=== PATIENT | female | born 1960 | race Caucasian/White ===

== ENCOUNTER 2023-06-04 15:19 | Outpatient (AMB) | payer OTHER, SELFPAY ==
--- NOTE | 2023-06-04 15:20 | HO.NEPHOV_ITS ---
HPI HPI Comments History of Present Illness Details 62-year-old woman with a history of obes ity hypertension recently diagnosed diabetes mellitus with CKD 3. She underwent ureteral surgery at age 4. Subsequently she has not had any followups. Recently she was told to have stage III CKD and hands this referral [facility] Medical History (Updated 06/04/23 @ 15:39 by Twan Betts MD) HTN (hypertension) Diabetes Social History (Updated 06/04/23 @ 15:26 by Angeline De Paz MA) Alcohol intake: never Tobacco use type: Cigarette Cigarette Packs Per Day: 1 Vital Signs 06/04/23 15:21 Height 5 ft 5.5 in Weight 259 lb 8 oz BMI 42.5 BP 152/100 H Blood Pressure Location Lt brachial Position Sitting Pulse 58 Pulse Source Pulse Oximeter Pulse Oximetry (%) 96 Oxygen Delivery Method Room Air Physical Exam Vital Signs: Last Vital Signs Pulse 58 06/04/23 15:21 BP 152/100 H 06/04/23 15:21 Pulse Ox 96 06/04/23 15:21 Oxygen Delivery Method Room Air 06/04/23 15:21 BMI result Body Mass Index 42.5 Const General: comfortable Nutritional Appearance: well nourished Orientation/consciousness: patient oriented x3 HEENT Head: No normal to inspection Mouth: moist mucous membranes Neck Neck: Yes supple and Yes no JVD Resp Auscultation: clear to auscultation bilaterally, no rales and rub present Cardio Jugular venous distension: no JVD Palpation: no palpable S3 and no palpable S4 Heart sounds: no rubs GI Palpation (GI): Soft to palpation and nontender Percussion: No Fluid wave present General: Yes no CVA tenderness Back/Spine/Pelvis Back: no CVA tenderness Skin General skin exam: no rashes or lesions noted Neuro General: patient oriented x3 Extrem General: Yes no pedal edema and No clubbing Assessment & Plan Assessment & Plan (1) CKD (chronic kidney disease) stage 3, GFR 30-59 ml/min: Code(s): N18.30 - Chronic kidney disease, stage 3 unspecified Plan: CKD most likely due to hypertension diabetic kidney disease. Given the history of urethral surgery in the past obstructive uropathy should be ruled out. No reasonably she has any active glomerular interstitial disease at this time. Workup as outlined below. We will check renal ultrasonogram to rule out obstruction and to assess echogenicity. The meantime encouraged her to stand low-sodium diet. She will benefit from weight loss. Should continue to avoid NSAIDs and other nephrotoxic agents. Goal is to maintain the hemoglobin A1c less than 7%. Blood pressure goal of 130/80. Apparently blood pressure being well controlled except today. Since this is her 1st visit on not need any changes we will re-evaluate the blood pressure during the next visit and see if she requires any titration with regards to the antihypertensives. Orders: Orders Electrolytes Today N18.30 - Chronic kidney disease, stage 3 unspecified Blood Urea Nitrogen Today N18.30 - Chronic kidney disease, stage 3 unspecified Creatinine Today N18.30 - Chronic kidney disease, stage 3 unspecified Total Protein Urine Random Today N18.30 - Chronic kidney disease, stage 3 unspecified UA and rflx microscopic Today N18.30 - Chronic kidney disease, stage 3 unspecified Creatinine Urine Today N18.30 - Chronic kidney disease, stage 3 unspecified Calcium Today N18.30 - Chronic kidney disease, stage 3 unspecified US renal BI Today N18.30 - Chronic kidney disease, stage 3 unspecified Coding Level of Care Code New Pt Level 4 (54000) Diagnoses CKD (chronic kidney disease) stage 3, GFR 30-59 ml/min N18.30 Results Reviewed Results Reviewed: Lab data not available Nephrology Results: No Data to Display
[2023-06-04 15:21] VITALS: BP 152/100; PULSE 58; O2SAT 96; BMI 42.5
== END 2023-06-04 15:44 | disposition home or self-care (01) ==
PROVIDERS: PCP Internal Medicine; Visit Provider Internal Medicine Hypertension Specialist
DX: N18.30 Chronic kidney disease, stage 3 unspecified (principal)
CPT/HCPCS: 99204

== ENCOUNTER → 2023-06-04 15:19 | Outpatient (BNVA) | payer OTHER, SELFPAY | PROVIDERS: PCP Internal Medicine; Visit Provider Internal Medicine Hypertension Specialist | DX: I12.9 Hypertensive chronic kidney disease with stage 1 through stage 4 chronic kidney disease, or unspecified chronic kidney disease (principal); E11.22 Type 2 diabetes mellitus with diabetic chronic kidney disease; N18.30 Chronic kidney disease, stage 3 unspecified | CPT/HCPCS: 99202 ==